=== PATIENT | female | born 1955 | race African-American/Black ===

== ENCOUNTER 2024-12-06 03:31 | Emergency (ER) | payer MEDICARE, SELFPAY ==
[2024-12-06 03:40] VITALS: BP 182/55; BP 184/78; PULSE 67; PULSE 69; RESP 16; TEMP 36.5; O2SAT 98; BMI 36.9
[2024-12-06 03:50] VITALS: BP 182/55; PULSE 67; RESP 18; O2SAT 98
[2024-12-06 06:10] VITALS: BP 184/78; PULSE 64; RESP 16; TEMP 36.4; O2SAT 97
--- NOTE | 2024-12-06 06:53 | MHC.EDTECH ---
pt clothing in dryer. will need at D/C
--- NOTE | 2024-12-06 07:01 | ED.SKABFB ---
HPI - Skin/Abscess/Foreign Bdy General Chief complaint: Skin/Abscess/Foreign Body Stated complaint: Itchy body swollen ankles Time Seen by Provider: 12/06/24 06:58 Source: patient and old records reviewed Mode of arrival: ambulatory Limitations: no limitations History of Present Illness ED Provider: HARMEET MARTELL narrative: 69 yo female with PMH of HTN who is homeless and sleeps on the ground. She was sleeping yesterday and woke up on the ground with itchy burning bites on her legs and arm. She states she didn't see any insect. She notes she just wants it to go away. She denies any other issues. She states she can see the welts. She cleaned the area prior to sleeping from 12-330. She denies any other symptoms. MD complaint: insect bite/sting and lesion Onset (ago): day(s) (1) Location: LUE, RUE, LLE and RLE Severity: moderate Quality: burning and pruritic Relieving factors: none Exacerbating factors: none Context: other Associated symptoms: denies other symptoms Treatments prior to arrival: none Related Data Previous Rx's ?Medication ?Instructions ?Recorded famotidine 20 mg tablet (Pepcid) 20 mg PO DAILY abdominal 12/06/24 discomfort #10 tabs loratadine 10 mg tablet (Claritin) 10 mg PO DAILY #10 tabs 12/06/24 mupirocin 2 % topical ointment 1 appl topical BID 5 days #15 grams 12/06/24 (Centany) prednisone 20 mg tablet 40 mg (2 x 20 mg) PO DAILY 4 days 12/06/24 #8 tabs Allergies Allergy/AdvReac Type Severity Reaction Status Date / Time No Known Allergies Allergy Verified 12/06/24 03:44 Review of Systems Review of Systems: Constitutional : No Fever, No Chills ENT/Mouth : No sore throat, No Rhinorrhea Eyes: No Eye Pain, No Swelling, No Redness Cardiovascular : No Chest Pain, No SOB Respiratory : No Cough, No Sputum Gastrointestinal : No Nausea, No Vomiting, No Diarrhea, No abdominal Pain Genitourinary : No Dysuria, No Hematuria Musculoskeletal : No joint pain, No Myalgias, No Joint Swelling Skin : pos Skin Lesions, positive skin rash Neuro : No Weakness, No Numbness, No Headache All other systems reviewed and are negative [facility] Past Medical History Attestation statement: The following information was validated with the patient. Source: old records reviewed Medical History HTN (hypertension) Social History Social History (Updated 12/06/24 @ 07:35 by Yoselyn Shaw DO) Patient Tobacco Use Status: Never used Tobacco Smoked in Last 30 Days: No Use of substances other than those prescribed or required for medical reasons: No Advance Directives: No Advance Directives Information Provided: Yes Do you have a plan to hurt others: No Plan Physical Exam Vital Signs: Vital Signs: Last Vital Signs Temp 98.2 F 12/06/24 10:04 Pulse 71 12/06/24 10:04 Resp 18 12/06/24 10:04 BP 173/79 H 12/06/24 10:04 Pulse Ox 97 12/06/24 10:04 O2 Del Method Room Air 12/06/24 10:04 BMI result Body Mass Index 36.9 Appearance: Alert. Oriented X3. No acute distress. Eyes: Pupils equal, round and reactive to light. ENT: Pharynx normal. Neck: Normal inspection. CVS: Pulses normal. Respiratory: No respiratory distress. Abdomen: atraumatic Skin: Skin warm and dry. Normal skin color. Extremities: No lower extremity edema. both legs and arms have faint skin colored welts noted multiple but no signs of secondary infection. no bites noted and no lesions between fingers Neuro: Oriented X 3. No motor deficit. No sensory deficit. CN2-12 intact Medications Administered Discontinued Medications Generic Name Dose Route Start Last Admin Trade Name Freq PRN Reason Stop Dose Admin Famotidine 20 mg 12/06/24 07:30 12/06/24 07:38 Famotidine 20 Mg Tablet PO 12/06/24 07:31 20 mg ONCE ONE Administration Loratadine 10 mg 12/06/24 07:30 12/06/24 07:38 Loratadine 10 Mg Tablet PO 12/06/24 07:31 10 mg ONCE ONE Administration Mupirocin 1 appl 12/06/24 07:30 12/06/24 09:57 Mupirocin 2 % Oint 22 Gm Tube TOPICAL 12/06/24 07:31 1 appl ONCE ONE Administration Protocol Prednisone 40 mg 12/06/24 07:30 12/06/24 07:38 Prednisone 20 Mg Tablet PO 12/06/24 07:31 40 mg ONCE ONE Administration Medical Decision Making Medical Decision Making MDM Narrative: 69 yo female with PMH of HTN here with diffuse uninfected raised bites that are more consistent with localized reaction and not scabies. She is symptomatic. At this time will offer claritin, pepcid, mupirocin and short course prednisone. There are no signs of infection. Differential Diagnosis Differential Diagnoses: The differential diagnosis associated with the presentation includes allergic reaction, insect bite Admission/Observation Consideration of admission/observation: Escalation of care including admission/observation considered no resp issues or any other concerns stable for DC External Record Review External record reviewed: Outpatient record Prescription Management I considered prescription management with: Other Social Determinants Patient?s care significantly limited by Social Determinants of Health including: Inadequate housing, Problems related to primary support group and Unemployment Discharge Plan Discharge Clinical Impression: Insect bites Qualifiers: Encounter type: initial encounter Site of insect bite: unspecified site Qualified Code(s): W57.XXXA - Bitten or stung by nonvenomous insect and other nonvenomous arthropods, initial encounter Allergic reaction Qualifiers: Encounter type: initial encounter Qualified Code(s): T78.40XA - Allergy, unspecified, initial encounter Patient Disposition: Home, Self-Care Instructions: General Allergic Reaction (ED) Additional Instructions: return for worsening redness, swelling, signs of infection such as fever or yellow drainage use the ointment twice a day on lesions for 5 days Prescriptions: New famotidine [Pepcid] 20 mg tablet 20 mg PO DAILY Qty: 10 0RF loratadine [Claritin] 10 mg tablet 10 mg PO DAILY Qty: 10 0RF prednisone 20 mg tablet 40 mg PO DAILY 4 Days Qty: 8 0RF mupirocin [Centany] 2 % ointment 1 appl topical BID 5 Days Qty: 15 0RF Interventions: ED Discharge Assessment Last Done: 12/06/24 10:04 Discharge Date/Time: 12/06/24 10:05 Print Language: Japanese
[2024-12-06 08:14] VITALS: BP 161/80; PULSE 73; RESP 18; TEMP 36.2; O2SAT 99
[2024-12-06 09:25] VITALS: BP 173/79; PULSE 71; RESP 18; TEMP 36.8; O2SAT 97
--- NOTE | 2024-12-06 09:26 | MHC.EDTECH ---
Pts clothes removed from dryer. Pt showered and is now waiting in 4 mendez for discharge paperwork. VS taken.
[2024-12-06 10:04] VITALS: BP 173/79; PULSE 71; RESP 18; TEMP 36.8; O2SAT 97
== END 2024-12-06 10:05 | disposition home or self-care (01) ==
PROVIDERS: Emergency Provider Emergency Medicine
DX: L29.89 Other pruritus (principal)
CPT/HCPCS: 99283; 99284